=== PATIENT | male | born 1985 | race Caucasian/White ===

== ENCOUNTER 2018-08-10 17:28 | Emergency (ER) | payer OTHER ==
[~2018-08-10] VITALS: Ht 167.6 cm; Wt 69.2 kg
[~2018-08-10 17:28] MED LIST: DIPH-423 PO; HYDR28CR14 TP; IBUP-1984 PO
[2018-08-10] MEDS ORDERED: CLON-529 PO (19:09)
[2018-08-10] MEDS ORDERED: ONDA8TAB6 PO (19:09)
[2018-08-10] MEDS ORDERED: cloNIDine 0.1 mg tablet PO ONE (19:10)
[2018-08-10 19:26] VITALS: BP 131/87
== END 2018-08-10 19:30 | disposition home or self-care (01) ==
LOC: ER 17:29
DX: F11.23 Opioid dependence with withdrawal (principal); R11.10 Vomiting, unspecified; R19.7 Diarrhea, unspecified; R10.9 Unspecified abdominal pain; R61 Generalized hyperhidrosis; F17.200 Nicotine dependence, unspecified, uncomplicated
CPT/HCPCS: 99283

== ENCOUNTER 2018-08-12 11:42 | Emergency (ER) | payer OTHER ==
[~2018-08-12] VITALS: Ht 167.6 cm; Wt 68.2 kg
[~2018-08-12 11:42] MED LIST changes: +CLON-529 PO; +ONDA8TAB6 PO
[2018-08-12 13:24] VITALS: BP 105/61
[2018-08-12] MEDS ORDERED: buprenorphine/naloxone 8mg/2mg SL tablet SL ONE (14:25)
[2018-08-12] MEDS ORDERED: NO HOME MEDS (14:45)
== END 2018-08-12 15:21 | disposition home or self-care (01) ==
LOC: ER 11:43
DX: F11.23 Opioid dependence with withdrawal (principal)
CPT/HCPCS: 99282

== ENCOUNTER 2018-12-30 23:13 | Emergency (ER) | payer OTHER ==
[~2018-12-30] VITALS: Ht 172.7 cm; Wt 68.3 kg
[~2018-12-30 23:13] MED LIST changes: -CLON-529 PO; -DIPH-423 PO; -HYDR28CR14 TP; -IBUP-1984 PO; +NO HOME MEDS; -ONDA8TAB6 PO
[2018-12-30 23:14] VITALS: BP 105/67
== END 2018-12-30 23:33 | disposition left against medical advice (07) ==
LOC: ER 23:13
DX: K08.89 Other specified disorders of teeth and supporting structures (principal); Z53.21 Procedure and treatment not carried out due to patient leaving prior to being seen by health care provider

== ENCOUNTER 2021-03-03 04:36 | Emergency (ER) | payer MEDICAID, OTHER ==
[~2021-03-03] VITALS: Ht 170.2 cm; Wt 71.2 kg
[2021-03-03] MEDS ORDERED: dexamethasone sod phosphate 10mg/ml inj IV STA (05:15)
[2021-03-03] MEDS ORDERED: normal saline 1000ML IV soln IVB ONE (05:15)
[2021-03-03] MEDS ORDERED: CLINDAMYCIN/D5W 900mg/50ml 50 ML IV ONE (05:15)
[2021-03-03] MEDS ORDERED: iohexol 300mg/ml 100ml inj. ONE (05:26)
[2021-03-03] MEDS ORDERED: AMOX500C2 PO (05:35)
[2021-03-03] MEDS ORDERED: HYDR-3965 PO (05:35)
[2021-03-03] MEDS ORDERED: METH4TAB81 PO (05:35)
[2021-03-03] MEDS ORDERED: ONDA4TAB6 PO (05:35)
--- NOTE | 2021-03-03 05:53 | NUR ---
pt asked for ibuprofen, Dr Restrepo informed
[2021-03-03] MEDS ORDERED: acetaminophen 1,000mg/100ml IV 100 ML IV ONE (06:02)
[2021-03-03 06:04] LABS: BASOPHILS % (AUTO) 0.3 % (0-1); EOSINOPHILS # (AUTO) 0.4 X10'3 (0-0.9); EOSINOPHILS % (AUTO) 3.3 % (0-6); HEMATOCRIT 42.1 % (42.0-52.0); HEMOGLOBIN 14.2 g/dl (14.0-17.9); LYMPHOCYTES # (AUTO) 1.8 X10'3 (1.1-4.8); LYMPHOCYTES % (AUTO) 16.3 % (21-51); MEAN CORPUSCULAR HEMOGLOBIN 29.7 PG (27.0-31.0); MEAN CORPUSCULAR HGB CONC 33.8 g/dL (33.0-36.5); MEAN CORPUSCULAR VOLUME 87.8 FL (78-98); MEAN PLATELET VOLUME 10.1 FL (7.4-10.4); MONOCYTES # (AUTO) 0.9 X10'3 (0-0.9); MONOCYTES % (AUTO) 8.3 % (2-12); NEUTROPHILS # (AUTO) 7.8 X10'3 (1.8-7.7); NEUTROPHILS % (AUTO) 71.8 % (42-75); PLATELET COUNT 242 X10'3 (140-440); RED BLOOD COUNT 4.79 X10'6 (4.70-6.10); RED CELL DISTRIBUTION WIDTH 13.4 % (11.5-14.5); WHITE BLOOD COUNT 10.9 X10'3 (4.5-11.0)
--- NOTE | 2021-03-03 06:09 | NUR ---
pharmacy didn't release the tylenol when my RN went to get the medication. They have now released it, however, no staff to get the medication, and she has no staff either to bring the medication.
[2021-03-03 06:13] LABS: ALANINE AMINOTRANSFERASE 31 U/L (12-78); ALBUMIN 4.1 G/DL (3.4-5.0); ALBUMIN/GLOBULIN RATIO 1.1 (1.1-1.5); ALKALINE PHOSPHATASE 147 IU/L (46-116); ANION GAP 5 (8-16); ASPARTATE AMINO TRANSFERASE 18 U/L (10-37); BILIRUBIN,TOTAL 0.5 MG/DL (0.1-1.0); BLOOD UREA NITROGEN 11 MG/DL (7-18); CALCIUM 8.5 MG/DL (8.5-10.1); CHLORIDE 105 MMOL/L (99-107); CREATININE 0.92 MG/DL (0.60-1.10); GLUCOSE 91 MG/DL (70-104); POTASSIUM 4.5 MMOL/L (3.5-5.1); SODIUM 140 MMOL/L (135-145); TOTAL CARBON DIOXIDE 30.4 MMOL/L (24-32); TOTAL PROTEIN 7.8 G/DL (6.4-8.2); eGFR > 90 ML/MIN
[2021-03-03 08:01] VITALS: BP 103/59
[2021-03-03] MEDS ORDERED: ketorolac trometh. 30mg/ml inj. IV ONE (08:10)
[2021-03-03] MEDS ORDERED: ketorolac tromethamine 15mg/ml inj. IV ONE (08:30)
== END 2021-03-03 09:08 | disposition home or self-care (01) ==
LOC: ER 04:37
DX: K04.7 Periapical abscess without sinus (principal); K02.9 Dental caries, unspecified; K08.89 Other specified disorders of teeth and supporting structures; F11.90 Opioid use, unspecified, uncomplicated; Z79.2 Long term (current) use of antibiotics; Z79.899 Other long term (current) drug therapy
CPT/HCPCS: 36415; 70491; 80053; 83605; 84145; 85025; 87040; 96365; 96368; 96375; 99285; J0131; J1100; J1885; J7030; Q9967; J3490

== ENCOUNTER 2021-06-20 10:27 | Emergency (ER) | payer MEDICAID ==
[~2021-06-20] VITALS: Ht 167.6 cm; Wt 77.3 kg
[~2021-06-20 10:27] MED LIST changes: +METH4TAB81 PO; +ONDA4TAB6 PO
[2021-06-20 11:23] VITALS: BP 117/73
[2021-06-20] MEDS ORDERED: IBUP-1984 PO (17:14)
[2021-06-20] MEDS ORDERED: ketorolac tromethamine 15mg/ml inj. IM ONE (17:15)
== END 2021-06-20 18:05 | disposition home or self-care (01) ==
LOC: ER 10:27
DX: S40.022A Contusion of left upper arm, initial encounter (principal); F11.90 Opioid use, unspecified, uncomplicated; Z79.899 Other long term (current) drug therapy; W01.0XXA Fall on same level from slipping, tripping and stumbling without subsequent striking against object, initial encounter; Z91.81 History of falling; Y93.89 Activity, other specified; Y92.89 Other specified places as the place of occurrence of the external cause; Y99.8 Other external cause status
CPT/HCPCS: 73060; 93931; 93971; 96372; 99284; J1885

== ENCOUNTER 2021-07-01 03:22 | Emergency (ER) | payer MEDICAID ==
[~2021-07-01] VITALS: Ht 167.6 cm; Wt 79.0 kg
[2021-07-01 04:05] VITALS: BP 118/82
--- NOTE | 2021-07-01 04:24 | NUR ---
Patient was given a sandwich to eat at direction of MD to see if passage would help with possible obstruction. Patient is able to eat sandwich and drink water, he states it is difficule, he feels he still has some obstruction. No vomiting noted.
[2021-07-01] MEDS ORDERED: sucralfate 1 gm tablet PO ONE (08:40)
[2021-07-01] MEDS ORDERED: mag hydrox/Alum hydrox/simeth 30ml oral suspension PO ONE (08:40)
[2021-07-01] MEDS ORDERED: PANT-47 PO (09:57)
[2021-07-01] MEDS ORDERED: LIDO20SO16 PO (09:57)
== END 2021-07-01 10:09 | disposition home or self-care (01) ==
LOC: ER 03:23
DX: K22.4 Dyskinesia of esophagus (principal); F11.90 Opioid use, unspecified, uncomplicated; Z79.899 Other long term (current) drug therapy
CPT/HCPCS: 99283

== ENCOUNTER 2021-08-16 15:31 | Emergency (ER) | payer MEDICAID ==
[~2021-08-16] VITALS: Ht 170.2 cm; Wt 77.3 kg
[~2021-08-16 15:31] MED LIST changes: +LIDO20SO16 PO; +PANT-47 PO
[2021-08-16 19:37] VITALS: BP 126/76
== END 2021-08-16 19:43 | disposition home or self-care (01) ==
LOC: ER 15:32
DX: Z02.89 Encounter for other administrative examinations (principal); R00.0 Tachycardia, unspecified; R11.0 Nausea; Z72.89 Other problems related to lifestyle; Z79.899 Other long term (current) drug therapy
CPT/HCPCS: 99281

== ENCOUNTER 2022-02-23 21:23 | Emergency (ER) | payer MEDICAID ==
[~2022-02-23] VITALS: Ht 170.2 cm; Wt 77.0 kg
[2022-02-23 22:02] VITALS: BP 119/79
[2022-02-24] MEDS ORDERED: penicillin V potassium 500mg tablet PO ONE (01:35)
[2022-02-24] MEDS ORDERED: HYDROcodone/acetaminophen 10/325mg tab PO ONE (01:35)
[2022-02-24] MEDS ORDERED: PENI500T2 PO (01:47)
[2022-02-24] MEDS ORDERED: HYDR-3972 PO (01:47)
== END 2022-02-24 02:23 | disposition home or self-care (01) ==
LOC: ER 21:24
DX: K08.89 Other specified disorders of teeth and supporting structures (principal); K04.7 Periapical abscess without sinus
CPT/HCPCS: 99283

== ENCOUNTER 2023-02-22 21:48 | Emergency (ER) | payer MEDICAID ==
[~2023-02-22] VITALS: Ht 167.6 cm; Wt 89.9 kg
[2023-02-22 21:52] VITALS: BP 134/81; PULSE 65; RESP 16; O2SAT 97
[2023-02-23] MEDS ORDERED: amox tr/potassium clavulanate 875/125mg TAB PO ONE (00:05)
[2023-02-23] MEDS ORDERED: AMOX-117 PO (00:07)
[2023-02-23 00:35] VITALS: TEMP 98.5
== END 2023-02-23 00:38 | disposition home or self-care (01) ==
LOC: ER 21:48
DX: K04.7 Periapical abscess without sinus (principal); Z79.899 Other long term (current) drug therapy; Z79.2 Long term (current) use of antibiotics
CPT/HCPCS: 99283

== ENCOUNTER 2023-09-16 16:27 | Emergency (ER) | payer MEDICAID ==
[~2023-09-16] VITALS: Ht 167.6 cm; Wt 87.8 kg
[2023-09-16 16:29] VITALS: BP 128/91; PULSE 73; RESP 16; TEMP 98.6; O2SAT 99
[2023-09-16] MEDS: dexamethasone sod phosphate 10mg/ml inj PO STA (17:45)
== END 2023-09-16 17:47 | disposition home or self-care (01) ==
LOC: ER 16:28
DX: T18.9XXA Foreign body of alimentary tract, part unspecified, initial encounter (principal); F11.90 Opioid use, unspecified, uncomplicated; Z79.899 Other long term (current) drug therapy; W44.F3XA Food entering into or through a natural orifice, initial encounter; Y93.89 Activity, other specified; Y92.89 Other specified places as the place of occurrence of the external cause; Y99.8 Other external cause status
CPT/HCPCS: 99283; J1100

== ENCOUNTER 2024-06-26 15:16 | Emergency (ER) | payer MEDICAID ==
[~2024-06-26] VITALS: Ht 172.7 cm; Wt 74.1 kg
[2024-06-26 16:14] VITALS: BP 116/80; PULSE 67; RESP 16; TEMP 98.1; O2SAT 99
== END 2024-06-26 16:11 | disposition home or self-care (01) ==
LOC: ER 15:16
DX: J22 Unspecified acute lower respiratory infection (principal); F11.90 Opioid use, unspecified, uncomplicated
CPT/HCPCS: 99282

== ENCOUNTER 2024-11-06 21:39 | Emergency (ER) | payer MEDICAID ==
[~2024-11-06] VITALS: Ht 172.7 cm; Wt 81.9 kg
[2024-11-07] MEDS ORDERED: DOXY-1 PO
--- NOTE | 2024-11-07 00:02 | Physician Documentation ---
History of Present Illness ~ Chief Complaint: See Chief Complaint Stated Complaint: TICK BITE ON ARM/HEADACHE Time Seen by MD: 23:37 Primary Medical Doctor: none Source: patient Exam Limitations: no limitations HPI 39-year-old male pulled a tick off his skin on his right antecubital region this morning he states the tick was not engorged and he only noticed it in the morning and states that shortly after he removed the tick he had a headache. Tetanus within 5 years?: Yes Medication Reconciliation Allergies: Coded Allergies: No Known Allergies (Unverified , 06/20/21) Scheduled Lidocaine Hcl (Xylocaine Viscous), 5 ML PO Q2H PRN SORE THROAT Methylprednisolone (Medrol Dosepak), 1 TAB PO UD Pantoprazole Sodium (PROTONIX tablet), 1 TAB PO DAILY Scheduled PRN Ondansetron Hcl (Zofran), 1 TAB PO Q6H PRN for nausea/vomiting Miscellaneous Medications Home Med List (No Home Medications), (Reported) Past Medical History Past Medical History: No Pertinent History Past Surgical History: no surgical history Alcohol Use: None Drug Use: heroin Lives with: Spouse Lives In: Home Occupation: employed Review of Systems All Other Systems at this time: Reviewed and Negative Physical Exam Vital Signs: RN Vital Signs have been reviewed: Yes, Temperature: 98.3, Source: Temporal, Heart Rate: 71, Respiratory Rate: 16, BP: 111/69, Pulse Oximetry: 98, Weight: 81.900 Oxygen Flow Rate: 0 General Appearance: alert, WD/WN, no apparent distress Cardiovascular: normal peripheral pulses, regular rate, rhythm, no edema Respiratory: lungs clear, normal breath sounds, no respiratory distress Skin Right the only way distal upper arm no obvious penetration of Raffy no residual from tick. No erythema or bull's eye Progress Results/Orders Results/Orders Vital Signs 11/06/24 21:42 Temp 98.3 Pulse 71 Resp 16 B/P (MAP) 111/69 Pulse Ox 98 O2 Flow Rate 0 Medical Decision Making Differential Dx:Considerations: Include: Cellulitis, Other Departure Time of Disposition: 23:59 Disposition: 01 HOME / SELF CARE / HOMELESS Impression: Primary Impression: Tick bite Condition: Stable Discharge Instructions: Tick Bite Information, Adult, [id number] Additional Instructions: Prophylactic antibiotic for 3 days monitor for signs of infection follow up with primary care in 1 week or sooner as needed Departure Forms: Excuse form Work or School Excused From: Work Excuse beginning now through the following date: November 06, 2024 Referrals: NO PRIMARY CARE PROVIDER (PCP) Prescriptions Doxycycline Hyclate (Doxycycline Hyclate) 100 Mg Capsule 1 CAP PO DAILY for 3 Days, #3 CAP Prov: MERI FAY NP 11/07/24 Education Educated: Patient Educated regarding: diagnosis, treatment, need for follow up Signature Scribe Signature: No scribe Attestation: The note accurately reflects work and decisions made by me.Meri CROOKS 11/07/24 00:01 MERI FAY NP November 07, 2024 00:02
[2024-11-07 00:20] VITALS: BP 124/72; PULSE 78; RESP 14; TEMP 98.3; O2SAT 98
== END 2024-11-07 00:23 | disposition home or self-care (01) ==
LOC: ER 21:39
DX: S41.151A Open bite of right upper arm, initial encounter (principal); F11.90 Opioid use, unspecified, uncomplicated; Z79.899 Other long term (current) drug therapy; W57.XXXA Bitten or stung by nonvenomous insect and other nonvenomous arthropods, initial encounter; Y93.89 Activity, other specified; Y92.89 Other specified places as the place of occurrence of the external cause; Y99.8 Other external cause status
CPT/HCPCS: 99283

== ENCOUNTER 2025-02-27 23:03 | Emergency (ER) | payer MEDICAID ==
[~2025-02-27] VITALS: Ht 167.6 cm; Wt 80.0 kg
[2025-02-27] MEDS ORDERED: ONDA-243 PO (23:33)
--- NOTE | 2025-02-27 23:36 | Physician Documentation ---
History of Present Illness ~ Chief Complaint: Sore Throat Stated Complaint: ALLERGIC REACTION Time Seen by MD: 23:22 Primary Medical Doctor: none HPI This is a 39-year-old male who presents with a sore throat 1 hour after drinking a yogurt base drank, patient reports that after the pain started he had an episode of vomiting however has not vomited since. Patient reports no other acute symptoms or concerns. Patient reports no history of allergies. Medication Reconciliation Allergies: Coded Allergies: No Known Allergies (Unverified , 02/27/25) Scheduled Lidocaine Hcl (Xylocaine Viscous), 5 ML PO Q2H PRN SORE THROAT Methylprednisolone (Medrol Dosepak), 1 TAB PO UD Pantoprazole Sodium (PROTONIX tablet), 1 TAB PO DAILY Scheduled PRN ONDANSETRON ODT 4mg tablet (Ondansetron Odt), 1 TAB PO Q6H PRN PRN for nausea/vomiting Ondansetron Hcl (Zofran), 1 TAB PO Q6H PRN for nausea/vomiting Miscellaneous Medications Home Med List (No Home Medications), (Reported) Past Medical History Past Medical History: No Pertinent History Past Surgical History: no surgical history Alcohol Use: None Drug Use: heroin Lives with: Spouse Lives In: Home Occupation: employed Review of Systems ROS As stated above in the HPI, otherwise all systems are reviewed and negative. Physical Exam Vital Signs: Temperature: 97.6, Source: Temporal, Heart Rate: 68, Respiratory Rate: 18, BP: 106/80, Pulse Oximetry: 97, Weight: 80.000 Physical Exam VITALS: Reviewed and as above. GENERAL: Alert, nontoxic appearing, no apparent distress. HEENT: Pharynx nonerythematous, no tonsillar swelling, no exudates RESPIRATORY: No increased work of breathing, no respiratory distress, speaking in full clear sentences, clear lung sounds in all cruz, no wheezing, no stridor CV: Regular rate and rhythm no murmur SKIN: No rash Progress Results/Orders Results/Orders Completed Orders - RACHELE GOODSON Diphenhydramine Inj (Benadryl Inj.) (02/27/25 23:30) Dexamethasone Inj (Decadron 10mg/Ml Inj) (02/27/25 23:30) Ondansetron Disint. Tablet (Zofran Odt T (02/27/25 23:30) Medications Received in ER Medications (Trade) Dose Ordered Sig/Angel Route PRN Reason Start Time Stop Time Status Last Admin Dose Admin (Benadryl inj.) 50 mg ONCE ONCE IM 02/27/25 23:30 02/27/25 23:32 DC 02/28/25 00:08 50 MG (Decadron 10mg/ ml inj) 10 mg ONCE STAT PO 02/27/25 23:30 02/27/25 23:32 DC 02/28/25 00:06 10 MG Vital Signs 02/27/25 02/28/25 23:07 00:10 Temp 97.6 97.3 Pulse 68 82 Resp 18 16 B/P (MAP) 106/80 142/82 Pulse Ox 97 99 Medical Decision Making Findings This 39-year-old male presented with sore throat following drinking a yogurt based beverage, patient had a single episode of emesis falling such of the pain, physical exam was benign with no pharyngeal erythema or swelling, clear lung sounds in all cruz and no rash. Additionally reassuring patient reported no continued GI symptoms including no vomiting or diarrhea. I have low suspicion for allergic cause of symptoms, most likely symptoms from inflammation, treatment plan is with Benadryl and dexamethasone to cover both inflammation and allergic causes. Patient is otherwise well-appearing and appropriate for out patient follow up, patient provided home care instructions, follow up instructions, and return to care precautions. Throat Diff Dx: Considerations: Include: Epiglottitis, Esophageal candidiasis, Hand foot mouth disease, Herpangina, Herpetic stomatitis, Peritonsillar abscess, Peritonsillar cellulitis, Pharyngitis-diphtheria, Pharyngitis-strepococcal, Pharyngitis-viral, Thrush Departure Time of Disposition: 23:33 Disposition: 01 HOME / SELF CARE / HOMELESS Impression: Primary Impression: Irritation of pharynx Condition: Improved Discharge Instructions: Sore Throat Additional Instructions: Your symptoms do not fully match a allergic reaction however we have provided medications to treat allergic reaction, I suspect something in the drink may have irritated your throat, the medications you have been provided will also rupa at this irritation. Please use the prescribed Zofran as needed for continued nausea or vomiting. Please follow up with your primary care provider in the next few days. Please return to the emergency department for any new or worsening concerning symptoms including but not limited to difficulty breathing or the inability to swallow. Referrals: NO PRIMARY CARE PROVIDER (PCP) Prescriptions ONDANSETRON ODT 4mg tablet (ONDANSETRON ODT) 4 Mg Tab.rapdis 1 TAB PO Q6H PRN PRN for nausea/vomiting for 4 Days, #16 TAB 0 Refills Prov: RACHELE GOODSON 02/27/25 Education Educated: Patient Educated regarding: diagnosis, treatment, prognosis, need for follow up Signature Scribe Signature: No scribe Attestation: The note accurately reflects work and decisions made by me.DAKSHA Epperson 02/28/25 00:24 RACHELE GOODSON Feb 27, 2025 23:36
[2025-02-28] MEDS: dexamethasone sod phosphate 10mg/ml inj PO STA (00:06)
[2025-02-28] MEDS: ondansetron 4mg rapidly disintigrating tab PO ONE (00:09)
[2025-02-28 00:10] VITALS: BP 142/82; PULSE 82; RESP 16; TEMP 97.3; O2SAT 99
== END 2025-02-28 00:12 | disposition home or self-care (01) ==
LOC: ER 23:03
DX: J39.2 Other diseases of pharynx (principal); F11.90 Opioid use, unspecified, uncomplicated; Z79.899 Other long term (current) drug therapy
CPT/HCPCS: 96372; 99283; J1100; J1200